=== PATIENT | male | born 1995 | race Caucasian/White ===

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

== ENCOUNTER → 2017-03-16 | Outpatient (REF) | LOC: WSOH 08:00 | DX: Z02.89 Encounter for other administrative examinations (principal) ==

== ENCOUNTER → 2017-04-01 | Outpatient (REF) | LOC: WSOH 11:38 | DX: Z01.89 Encounter for other specified special examinations (principal) ==

== ENCOUNTER 2022-04-20 16:22 | Emergency (ER) | payer BC, OTHER ==
[~2022-04-20] VITALS: Ht 185.4 cm; Wt 84.1 kg
[2022-04-20 16:32] VITALS: TEMP 97.8
[2022-04-20 18:06] VITALS: BP 132/85; PULSE 76
== END 2022-04-20 18:07 | disposition home or self-care (01) ==
LOC: COL.ER 16:22
DX: S09.90XA Unspecified injury of head, initial encounter (principal); S16.1XXA Strain of muscle, fascia and tendon at neck level, initial encounter; V28.4XXA Motorcycle driver injured in noncollision transport accident in traffic accident, initial encounter; Y93.55 Activity, bike riding; Y92.410 Unspecified street and highway as the place of occurrence of the external cause